=== PATIENT | female | born 1950 | race Caucasian/White ===

== ENCOUNTER → 2019-07-20 11:04 | Outpatient (BNVA) | payer MEDICARE, SELFPAY | PROVIDERS: Visit Provider Family Medicine | DX: Z01.419 Encounter for gynecological examination (general) (routine) without abnormal findings (principal); Z13.6 Encounter for screening for cardiovascular disorders; D12.6 Benign neoplasm of colon, unspecified; E55.9 Vitamin D deficiency, unspecified; H93.12 Tinnitus, left ear; D12.3 Benign neoplasm of transverse colon; R03.0 Elevated blood-pressure reading, without diagnosis of hypertension | CPT/HCPCS: 80053; 80061; 82306; 85025; 88175 ==

== ENCOUNTER 2020-02-06 11:30 | Outpatient (CLI) | payer MEDICARE, SELFPAY ==
--- NOTE | 2020-02-06 11:30 | MM_ITS ---
WS: [id number] BILATERAL SCREENING DIGITAL MAMMOGRAM WITH CAD HISTORY: history of breast cancer COMPARISON: None available. Bilateral CC and MLO views submitted. Computer aided detection analyzed. Breast composition: There are scattered areas of fibroglandular density. No suspicious masses, microc alcifications or architectural distortion. Dystrophic large calcifications in the anterior lateral RI GHT breast. There are several surgical sutures noted in the RIGHT axilla. MM/[place] [id number] IMPRESSION: BI-RADS: 2-Benign FOLLOW UP: 1 Year Follow-up Patient does have a history of breast cancer. No prior studies are available fo r comparison.
== END 2020-02-06 11:31 | disposition home or self-care (01) ==
LOC: RADSHAW 11:32
PROVIDERS: PCP Family Medicine; Visit Provider Family Medicine
DX: Z85.3 Personal history of malignant neoplasm of breast (principal)
CPT/HCPCS: 77066

== ENCOUNTER → 2020-03-04 16:20 | Outpatient (BNVA) | payer MEDICARE, SELFPAY | PROVIDERS: PCP Family Medicine; Visit Provider Family Medicine | DX: R10.9 Unspecified abdominal pain (principal) | CPT/HCPCS: 81000; 87077; 87086; 87184 ==

== ENCOUNTER 2020-03-14 12:16 | Outpatient (CLI) | payer MEDICARE, SELFPAY ==
[2020-03-14 13:07] LABS: Basophils # 0.1 10^3/uL (0.0-0.1); Basophils % 1.1 %; Eosinophils # 0.1 10^3/uL (0.0-0.8); Eosinophils % 1.9 %; Hematocrit 41.2 % (37.0-47.0); Hemoglobin 13.6 g/dL (11.5-15.3); Lymphocytes # 1.1 10^3/uL (0.8-4.8); Lymphocytes % 23.6 %; Mean Corpuscular Hemoglobin 30.8 pg (28.0-34.0); Mean Corpuscular Volume 93.2 fL (81-99); Mean Platelet Volume 10.4 fL (7.4-10.4); Monocytes # 0.3 10^3/uL (0.2-0.9); Monocytes % 7.4 %; Neutrophils # 3.04 10^3/uL (1.8-7.7); Neutrophils % 65.8 %; Nucleated Red Blood Cells % 0 %; Platelet Count 170 10^3/cmm (130-400); Red Blood Count 4.42 10^6/uL (4.1-5.3); Red Cell Distribution Width 11.9 % (12.1-15.1); White Blood Count 4.6 10^3/uL (4.0-10.0)
[2020-03-14 13:33] LABS: Alanine Aminotransferase 34 U/L (0-33); Albumin Level 4.3 g/dL (3.5-5.2); Alkaline Phosphatase 89 IU/L (35-105); Amylase 44 U/L (28-100); Anion Gap 11.2 (5-19); Aspartate Amino Transferase 26 U/L (0-32); Blood Urea Nitrogen 13 mg/dL (8-23); Calcium 9.2 mg/dL (8.5-10.5); Carbon Dioxide 29 mmol/L (22-29); Chloride 104 mmol/L (98-107); Globulin 2.4 g/dL (1.3-4.6); Glomerular Filtration Rate 122.7 mL/min (90-130); Glucose 106 mg/dL (65-115); Osmolality Calculated 291 mOsm/kg (285-295); Potassium 4.2 mmol/L (3.5-5.1); Sodium 140 mmol/L (136-145); Thyroid Stimulating Hormone 0.85 uIU/mL (0.27-4.20); Total Bilirubin 0.4 mg/dL (0.15-1.2); Total Protein 6.7 g/dL (6.6-8.7)
--- NOTE | 2020-03-14 14:00 | CT_ITS ---
WS: [id number] CT ABDOMEN PELVIS TECHNIQUE: Noncontrast CT of the abdomen and contrast-enhanced CT of the abdomen and pelvis with jin nal and sagittal reformatted images. CLINICAL INFORMATION: see dx COMPARISON: None. DLP: 2099.[address] scans at [facility] use at least one of these dose optimization techniques: automat ed exposure control; mA and/or kV adjustment per patient size (includes targeted exams where dose is matched to clinical indication); or iterative reconstruction. FINDINGS: Mild diffuse fatty infiltration of the liver. 2 or 3 Small low-attenuation lesions in the liver too s mall to characterize but most likely represent hepatic cysts. Low-attenuation lesions in the spleen m ost likely represent hepatic cysts or hemangiomas. Normal GE junction. Normal portal vein and splenic vein. Normal gallbladder. Lung bases are well aerated. Adrenal glands are normal. Moderate left pelvocaliectasis with suspected left UPJ stricture.Left ureter is decompressed. Left pe ripelvic renal cysts. No hydronephrosis in right kidney. Right ureter is decompressed. Bilateral uma l cysts. Normal caliber abdominal aorta. Aortic calcification. Sigmoid diverticulosis. No evidence of acute di verticulitis. Appendix appears normal. Small amount of free fluid in the cul-de-sac. Tiny fat-contain ing umbilical hernia. No periaortic or pelvic lymphadenopathy. No inguinal lymphadenopathy. Moderate to advanced degenerative changes lumbar spine with multilevel disc space narrowing throughout the lum bar spine. CT/CT abdomen pelvis wo/w [id number] IMPRESSION: 1. No abdominal or pelvic lymphadenopathy. 2. Moderate left pelvocaliectasis with suspected stricture at the left UPJ. Le ft ureter is decompressed. 3. Incidental bilateral renal cysts. 4. Low-attenuation lesions in the spleen most likely represent splenic cysts o r hemangiomas. 5. Diffuse fatty infiltration the liver with a few tiny low-attenuation lesion s too small characterize likely hepatic cysts. 6. Small amount of free fluid in the cul-de-sac. 7. Sigmoid diverticulosis. No evidence of acute diverticulitis.
== END 2020-03-14 12:17 | disposition home or self-care (01) ==
LOC: CT 12:17
PROVIDERS: PCP Family Medicine; Visit Provider Specialist
DX: R10.9 Unspecified abdominal pain (principal); R63.4 Abnormal weight loss; N28.89 Other specified disorders of kidney and ureter; Q61.02 Congenital multiple renal cysts; K76.0 Fatty (change of) liver, not elsewhere classified; K57.30 Diverticulosis of large intestine without perforation or abscess without bleeding; D12.3 Benign neoplasm of transverse colon; R29.90 Unspecified symptoms and signs involving the nervous system
CPT/HCPCS: 36415; 74178; 80053; 81003; 82150; 84443; 85025; G0463; Q9967

== ENCOUNTER 2020-03-14 16:04 | Outpatient (CLI) | payer MEDICARE, SELFPAY ==
[2020-03-14 16:47] LABS: Add Urine Microscopic? NO; Bilirubin Urine Neg (Negative); Blood Urine Neg (Negative); Glucose Urine UA Norm (Normal); Ketones Urine Negative (Negative); Leukocyte Esterase Urine Negative (Negative); Nitrate Urine Negative (Negative); Protein Urine Neg (Negative); Specific Gravity, Urine 1.005 (1.005-1.030); Urine Appearance Clear (CLEAR); Urine Color Yellow (Yellow); Urobilinogen Urine Norm (Negative); pH Urine 5 (5-7)
== END 2020-03-14 16:05 | disposition home or self-care (01) ==
LOC: LAB 16:08
PROVIDERS: PCP Family Medicine; Visit Provider Specialist
DX: R10.9 Unspecified abdominal pain (principal)
CPT/HCPCS: 81003

== ENCOUNTER → 2020-03-19 10:29 | Outpatient (BNVA) | payer MEDICARE, SELFPAY | PROVIDERS: PCP Family Medicine; Referring Provider Specialist; Visit Provider Urology | DX: R10.11 Right upper quadrant pain (principal) | CPT/HCPCS: 81003 ==

== ENCOUNTER 2020-04-08 09:30 | Outpatient (CLI) | payer MEDICARE, SELFPAY ==
--- NOTE | 2020-04-08 09:46 | NM_ITS ---
WS: [id number] INDICATION: Hydronephrosis TECHNIQUE: Nuclear medicine renal flow study. 12.5 mCi technetium DTPA administered. FINDINGS: CT abdomen pelvis March 14, 2020 reviewed. Normal symmetric renal perfusion bilaterally. Renal cortical echo be bilaterally symmetric and normal in appearance. Normal time to peak. Normal emptying post diuretic administration within normal filli ng of the bladder. No delayed excretion on delayed nephrogram. NM/NM renal flow w pharm [id number] IMPRESSION: Normal renal flow study with normal renal and ureteral excretion bi laterally
== END 2020-04-08 09:31 | disposition home or self-care (01) ==
LOC: RAD 09:37
PROVIDERS: PCP Family Medicine; Visit Provider Urology
DX: N13.30 Unspecified hydronephrosis (principal)
CPT/HCPCS: 78708; A9539

== ENCOUNTER → 2020-04-12 10:25 | Outpatient (BNVA) | payer MEDICARE, SELFPAY | PROVIDERS: PCP Family Medicine; Visit Provider Urology | DX: N13.30 Unspecified hydronephrosis (principal) | CPT/HCPCS: 81003 ==

== ENCOUNTER 2020-05-15 09:51 | Outpatient (CLI) | payer MEDICARE, SELFPAY ==
--- NOTE | 2020-05-15 10:15 | US_ITS ---
WS: [id number] RIGHT UPPER QUADRANT ULTRASOUND HISTORY: R10.11 - Right upper quadrant pain COMPARISON: None available. Liver: 18.3 cm in length. Normal size liver. No bile duct dilatation or mass. Gallbladder: Normally distended gallbladder with no stones or wall thickening. CBD: 0.4 cm Pancreas: Normal size and echogenicity. Right kidney: 11.3 cm in length. Normal size and echogenicity. No hydronephrosis or mass. Aorta and IVC: Unremarkable abdominal aorta and IVC. No ascites. US/US gall bladder [id number] IMPRESSION: Normal RIGHT upper quadrant ultrasound.
== END 2020-05-15 09:52 | disposition home or self-care (01) ==
LOC: RAD 09:53
PROVIDERS: PCP Family Medicine; Visit Provider Internal Medicine
DX: R10.11 Right upper quadrant pain (principal)
CPT/HCPCS: 76705

== ENCOUNTER → 2021-10-16 09:22 | Outpatient (BNVA) | payer MEDICARE, SELFPAY | PROVIDERS: PCP Family Medicine; Visit Provider Specialist | DX: M79.7 Fibromyalgia (principal); Z71.89 Other specified counseling | CPT/HCPCS: 20550; 20552; 99212; J1030; J3490 ==

== ENCOUNTER → 2021-11-28 12:00 | Outpatient (BNVA) | payer MEDICARE, SELFPAY | PROVIDERS: PCP Family Medicine; Visit Provider Family Medicine | DX: Z13.6 Encounter for screening for cardiovascular disorders (principal); E55.9 Vitamin D deficiency, unspecified; M25.552 Pain in left hip; G89.29 Other chronic pain | CPT/HCPCS: 80053; 80061; 82306; 85025 ==

== ENCOUNTER 2021-12-09 06:00 | Outpatient (RCR) | payer MEDICARE, SELFPAY | END 2022-01-07 23:59 | disposition home or self-care (01) | LOC: SPT 06:00 | PROVIDERS: PCP Family Medicine; Visit Provider Family Medicine | DX: M25.552 Pain in left hip (principal); G89.29 Other chronic pain | CPT/HCPCS: 97110; 97113; 97161 ==

== ENCOUNTER 2021-12-17 13:45 | Outpatient (CLI) | payer MEDICARE, SELFPAY ==
--- NOTE | 2021-12-17 14:01 | MM_ITS ---
WS: [id number] BILATERAL 3D TOMOSYNTHESIS DIGITAL DIAGNOSTIC MAMMOGRAPHY WITH CAD CLINICAL INFORMATION: history of breast cancer HISTORY: COMPARISON: February 06, 2020 TECHNIQUE: Bilateral CC, MLO, and ML views. FINDINGS: Scattered fibroglandular densities bilaterally. Stable dystrophic calcifications upper outer RIGHT br east. A few punctate and lucent centered calcifications. Slightly spiculated using asymmetric density upper outer LEFT breast. Recommend further evaluation with spot compression diagnostic mammography a nd ultrasound. Asymmetric density measures approximately 6 mm. Stable surgical clips RIGHT axilla. RIGHT breast is unremarkable and unchanged. MM/[place] [id number] IMPRESSION: BI-RADS: 0-Incomplete: Need additional imaging evaluation FOLLOW UP: Need Additional Imaging Recommend LEFT breast diagnostic mammography with spot compression views and ul trasound for further evaluation.
== END 2021-12-17 13:46 | disposition home or self-care (01) ==
LOC: RAD 13:48
PROVIDERS: PCP Family Medicine; Visit Provider Family Medicine
DX: Z85.3 Personal history of malignant neoplasm of breast (principal); R92.1 Mammographic calcification found on diagnostic imaging of breast
CPT/HCPCS: 77062

== ENCOUNTER 2022-01-08 06:00 | Outpatient (RCR) | payer MEDICARE, SELFPAY | END 2022-01-30 23:59 | disposition home or self-care (01) | LOC: SPT 06:00 | PROVIDERS: PCP Family Medicine; Visit Provider Family Medicine | DX: M25.552 Pain in left hip (principal); G89.29 Other chronic pain | CPT/HCPCS: 97110; 97113 ==

== ENCOUNTER 2022-01-08 13:36 | Outpatient (CLI) | payer MEDICARE, SELFPAY ==
--- NOTE | 2022-01-08 13:44 | MM_ITS ---
WS: [id number] LEFT 3D TOMOSYNTHESIS DIGITAL MAMMOGRAPHY WITH CAD CLINICAL INFORMATION: left breast mass COMPARISON: December 17, 2021 TECHNIQUE: 1 views of the left breast was obtained. FINDINGS: Scattered fibroglandular densities of the left breast. Again seen is the slightly spiculated 5 mm asy mmetric density upper outer LEFT breast. This partially compresses out on the spot compression views. Ultrasound is described below. ULTRASOUND BREAST LEFT TECHNIQUE: Ultrasound left breast focused area of concern. CLINICAL INFORMATION: left breast mass FINDINGS: Ultrasound LEFT breast upper-outer quadrant. At the 2:00 position 5 cm from the nipple there is a 4 x 5 x 2 mm incidental lymph node. No suspicious lesions to target for biopsy. No suspicious findings. Recommend return to annual screening mammography. MM/[place] [id number] IMPRESSION: BI-RADS: 2-Benign FOLLOW UP: 1 Year Follow-up Recommend return to annual diagnostic mammography.
== END 2022-01-08 13:37 | disposition home or self-care (01) ==
LOC: RAD 13:38
PROVIDERS: PCP Family Medicine; Visit Provider Family Medicine
DX: N63.21 Unspecified lump in the left breast, upper outer quadrant (principal); N64.89 Other specified disorders of breast
CPT/HCPCS: 76642; 77061

== ENCOUNTER 2022-02-10 14:56 | Outpatient (CLI) | payer MEDICARE, SELFPAY ==
--- NOTE | 2022-02-10 15:21 | XR_ITS ---
WS: [id number] XR hip LT 2-3V wo/w pel* [id number] REASON FOR EXAM: chronic left hip pain FINDINGS: No fracture or focal bone lesion. There is moderate narrowing of the joint space with moderate subchondral sclerosis and cystic change in the acetabulum with moderate marginal osteophytosis. There is moderate osteophytosis of the femora l head. No soft tissue abnormality. XR/XR hip LT 2-3V wo/w pel* [id number] IMPRESSION: Moderate osteoarthritis of the left hip.
== END 2022-02-10 14:57 | disposition home or self-care (01) ==
LOC: RAD 15:02
PROVIDERS: PCP Family Medicine; Visit Provider Family Medicine
DX: M16.12 Unilateral primary osteoarthritis, left hip (principal); M25.552 Pain in left hip; G89.29 Other chronic pain
CPT/HCPCS: 73502

== ENCOUNTER → 2022-02-24 13:08 | Outpatient (BNVA) | payer MEDICARE, SELFPAY | PROVIDERS: PCP Family Medicine; Referring Provider Family Medicine; Visit Provider Physician Assistant | DX: M51.37 Other intervertebral disc degeneration, lumbosacral region (principal); M47.816 Spondylosis without myelopathy or radiculopathy, lumbar region; M47.818 Spondylosis without myelopathy or radiculopathy, sacral and sacrococcygeal region | CPT/HCPCS: 72110; 99203 ==

== ENCOUNTER 2022-05-19 13:25 | Outpatient (CLI) | payer MEDICARE, SELFPAY ==
--- NOTE | 2022-05-19 13:45 | MR_ITS ---
WS: [id number] MRI LUMBAR SPINE NONCONTRAST HISTORY: lower back pain COMPARISON: None available. TECHNIQUE: Sagittal and axial multisequence imaging is submitted. Straightening of normal cervical lordosis. Reverse S-shaped curvature lumbar spine. Disc spaces are desiccated narrowing throughout the lumbar spine. Severe disc space narrowing at L5-S 1. Conus terminates normally at L1-2 disc level. L1-L2: Diffuse annular disc bulging. Bilateral facet joint arthritis and ligamentum flavum hypertroph y encroaching into the thecal sac. LEFT foraminal nerve root sleeve diverticulum. Mild bilateral fora artemio stenosis and RIGHT subarticular recess encroachment. L2-L3: Annular disc bulging with osteophytic ridging and facet arthritis. Facet joint arthritis encro aching upon the thecal sac. Mild bilateral subarticular recess stenosis, LEFT greater than RIGHT. L3-L4: Annular disc bulging with marked ligamentum flavum and facet arthritis. Mild central and RIGHT foraminal stenosis. Moderate LEFT foraminal stenosis and bilateral subarticular recess encroachment. L4-L5: Diffuse annular disc bulging with LEFT foraminal disc protrusion and annular fissure. Marked l igamentum flavum and facet joint arthritis. Moderate central stenosis with mild foraminal and subarti cular recess encroachment. L5-S1: Diffuse disc bulging. Mild clumping of the nerve roots in the thecal sac. Marked facet arthrit is. Ligamentum flavum hypertrophy. Mild bilateral subarticular recess and foraminal stenosis. LEFT renal parapelvic cysts or hydronephrosis. Normal renal flow study on 04/08/2020. MR/MR lumbar spine wo con* [id number] IMPRESSION: 1. Facet joint arthritis and degenerative scoliosis and disc disease throughou t the lumbar spine. 2. Mild bilateral foraminal and RIGHT subarticular recess stenosis at L1-2. 3. Mild bilateral subarticular recess stenosis at L2-3. 4. Moderate LEFT foraminal stenosis and bilateral subarticular recess encroach ment at L2-3. 5. Moderate central stenosis with mild foraminal subarticular recess stenosis at L4-5. 6. Mild bilateral subarticular recess stenosis and foraminal stenosis at L5-S1 .
== END 2022-05-19 13:26 | disposition home or self-care (01) ==
LOC: RAD 13:29
PROVIDERS: PCP Family Medicine; Visit Provider Physician Assistant
DX: M41.86 Other forms of scoliosis, lumbar region (principal); M48.061 Spinal stenosis, lumbar region without neurogenic claudication; M48.07 Spinal stenosis, lumbosacral region
CPT/HCPCS: 72148

== ENCOUNTER → 2022-06-18 13:17 | Outpatient (BNVA) | payer MEDICARE, SELFPAY | PROVIDERS: PCP Family Medicine; Visit Provider Physician Assistant | DX: M47.816 Spondylosis without myelopathy or radiculopathy, lumbar region (principal); M46.1 Sacroiliitis, not elsewhere classified; M51.37 Other intervertebral disc degeneration, lumbosacral region | CPT/HCPCS: 99213 ==

== ENCOUNTER → 2022-10-27 14:01 | Outpatient (BNVA) | payer MEDICARE, SELFPAY | PROVIDERS: PCP Family Medicine; Visit Provider Family Medicine | DX: I10 Essential (primary) hypertension (principal); E55.9 Vitamin D deficiency, unspecified | CPT/HCPCS: 80053; 80061; 82043; 82306; 85025 ==

== ENCOUNTER → 2023-01-14 13:09 | Outpatient (BNVA) | payer MEDICARE, SELFPAY | PROVIDERS: PCP Family Medicine; Visit Provider Dermatology | DX: L30.9 Dermatitis, unspecified (principal); D17.1 Benign lipomatous neoplasm of skin and subcutaneous tissue of trunk; Z85.820 Personal history of malignant melanoma of skin; Z85.828 Personal history of other malignant neoplasm of skin; L82.0 Inflamed seborrheic keratosis; L81.4 Other melanin hyperpigmentation; L57.8 Other skin changes due to chronic exposure to nonionizing radiation; Z79.899 Other long term (current) drug therapy | CPT/HCPCS: 17110; 99214 ==

== ENCOUNTER → 2023-01-26 13:50 | Outpatient (BNVA) | payer MEDICARE, SELFPAY | PROVIDERS: PCP Family Medicine; Visit Provider Family Medicine | DX: E78.5 Hyperlipidemia, unspecified (principal) | CPT/HCPCS: 80061 ==

== ENCOUNTER → 2023-02-03 10:53 | Outpatient (BNVA) | payer MEDICARE, SELFPAY | PROVIDERS: PCP Family Medicine; Visit Provider Dermatology | DX: D48.5 Neoplasm of uncertain behavior of skin (principal); R20.8 Other disturbances of skin sensation; R23.8 Other skin changes; L53.8 Other specified erythematous conditions | CPT/HCPCS: 11402; 12034 ==

== ENCOUNTER 2023-03-01 12:55 | Outpatient (CLI) | payer MEDICARE, SELFPAY ==
--- NOTE | 2023-03-01 13:00 | MM_ITS ---
WS: [id number] BILATERAL 3D TOMOSYNTHESIS DIGITAL DIAGNOSTIC MAMMOGRAPHY WITH CAD CLINICAL INFORMATION: history of breast cancer HISTORY: History of breast cancer COMPARISON: 2021 TECHNIQUE: Bilateral CC, MLO, and ML views. FINDINGS: Scattered fibroglandular densities bilaterally. Surgical clips RIGHT axilla. Stable post lumpectomy c hanges RIGHT breast with parenchymal fibrosis. No suspicious focal mass, asymmetry, calcifications, or architectural distortion. No evidence of calos gnancy. IMPRESSION: MM/[place] [id number] BI-RADS: 2-Benign FOLLOW UP: 1 Year Follow-up Recommend return to annual diagnostic mammography.
== END 2023-03-01 12:56 | disposition home or self-care (01) ==
LOC: RAD 12:56
PROVIDERS: PCP Family Medicine; Visit Provider Family Medicine
DX: Z85.3 Personal history of malignant neoplasm of breast (principal)
CPT/HCPCS: 77062; G0279

== ENCOUNTER → 2023-03-08 09:46 | Outpatient (BNVA) | payer MEDICARE, SELFPAY | PROVIDERS: PCP Family Medicine; Visit Provider Surgery | DX: Z12.11 Encounter for screening for malignant neoplasm of colon (principal); Z12.12 Encounter for screening for malignant neoplasm of rectum | CPT/HCPCS: 99024; 99203 ==

== ENCOUNTER 2023-03-23 08:31 | Day surgery (SDC) | payer MEDICARE, SELFPAY ==
[2023-03-23 08:55] VITALS: BP 158/92; PULSE 67; RESP 18; TEMP 36.4; O2SAT 97; BMI 28.3
--- NOTE | 2023-03-23 09:01 | P.HPUD_ITS ---
Surgery/Procedure H&P Update DATE OF PROCEDURE: March 23, 2023 DATE H&P PERFORMED: 03/08/23 H&P UPDATE INFORMATION: I have reviewed H&P completed within last 30 days, I have examined patient prior to procedure, No changes to prior documentation and H&P is in [facility] [place] on date indicated PLANNED PROCEDURE: Operation Date: 03/23/23 09:20 Proposed Procedures p Colonoscopy g0121,z12.11(Not Applicable) - Neymar Vaz MD
[2023-03-23] MEDS: sodium chloride 0.9% 1,000 ML 30 ML IV (09:02)
--- NOTE | 2023-03-23 09:04 | P.ANESASSM_ITS ---
Pre-Anesthetic Assessment Height/Weight: Height 1.65 m Weight 77.111 kg Temp Pulse Resp BP Pulse Ox O2 Del Method 97.6 F 67 18 158/92 97 Room Air 03/23/23 08:55 03/23/23 08:55 03/23/23 08:55 03/23/23 08:55 03/23/23 08:55 03/23/23 08:55 Preop Diagnosis: screening Operation Date: 03/23/23 09:20 Proposed Procedures p Colonoscopy g0121,z12.11(Not Applicable) - Neymar Vaz MD Was Beta Lexie taken within 24 hours: N/A Was Clonidine taken within 24 hours: N/A Last intake: Intake Last Liquid Date 03/22/23 Last Liquid Time 22:30 Last Solid Date 03/21/23 Last Solid Time 19:00 Social No alcohol and No tobacco Exam alert, oriented x 3, clear to auscultation bilaterally and regular rate & rhythm Airway Submandibular: within normal limits Cervical ROM: within normal limits Mallampati: Class I History/ROS No significant history except as noted and No significant complaints Pulmonary None reported CV/HEM Hypertension None reported Hepatic None reported GI None reported Metabolic None reported Musc/skel None reported Neuropsych None reported Anesthetic Plan ASA status: 2 Anesthesia: Anesthesia Evaluation and MAC Risk of > 500 ml blood loss (7ml/kg in children): Yes, adequate IV access and fluids planned Medications/Allergies Home Medications Medication Instructions Recorded Confirmed Last Taken Type ascorbic acid (vitamin C) 1,000 mg 1 g PO DAILY 03/19/20 03/19/23 03/22/23 History tablet omega-3 fatty acids 1,000 mg 1,000 mg PO DAILY 03/19/20 03/19/23 03/18/23 History capsule (Fish Oil Concentrate) gabapentin 300 mg capsule 300 mg PO .[facility] #270 caps 02/26/22 03/19/23 03/22/23 Rx (Neurontin) amlodipine 5 mg tablet 5 mg PO BEDTIME 03/19/23 03/19/23 03/22/23 History meloxicam 15 mg tablet 15 mg PO DAILY PRN Pain 03/19/23 03/23/23 03/18/23 History aspirin 81 mg tablet 81 mg PO DAILY 03/23/23 03/23/23 03/19/23 History Allergies Allergy/AdvReac Type Severity Reaction Status Date / Time Sulfa (Sulfonamide AdvReac Mild ALGY-Hives Verified 03/19/23 12:51 Antibiotics) Current Medications Generic Name Dose Route Start Last Admin Trade Name Nima PRN Reason Stop Dose Admin Sodium Chloride 1,000 mls @ 30 mls/hr 03/23/23 08:45 03/23/23 09:02 Sodium Chloride 0.9% IV 03/24/23 08:44 30 mls/hr .Q24H ONEYDA Administration PFSH Anesthesia Medical History Abdominal pain Breast cancer History of malignant melanoma History of nonmelanoma skin cancer History of skin cancer She has had melanoma on her head and her shoulder. She goes to [facility] Post-menopausal Surgical History H/O lumpectomy Family History Father , at age 85 CAD (coronary artery disease) Mother No problems noted. Social History Smoking and tobacco/nicotine status: never used tobacco/nicotine Alcohol intake: current Alcohol intake frequency: few times a month Alcohol type: wine Substance/Drug Use: never Marital status: Current occupational status: retired Data Anesthesia Cardiac Studies: No Data to Display
--- NOTE | 2023-03-23 09:45 | XR_ITS ---
WS: [id number] Exam: XR abdomen 1V* [id number] Date/Time of Exam: 03/23/2023 9:52 AM Reason For Exam: possible perf No bowel obstruction or pneumoperitoneum. Moderate amount of gas in the large bowel. No sign of organ enlargement. Signs of prior cholecystectomy. Moderately advanced degenerative change of the lumbar s pine and dextroscoliosis. IMPRESSION: 1. No sign of acute bowel obstruction or pneumoperitoneum. 2. Moderate amount of gas in the colon.
[2023-03-23 09:50] VITALS: BP 105/63; PULSE 63; RESP 14; TEMP 36.1; O2SAT 96
[2023-03-23 10:05] VITALS: BP 146/74; PULSE 50; RESP 16; O2SAT 98
--- NOTE | 2023-03-23 10:25 | ANE.PACU2 ---
Inpatient post-anesthesia follow up: Airway intact: Yes Vital signs: Temperature 97.0 F Pulse Rate 50 Respiratory Rate 16 Blood Pressure 146/74 Pulse Oximetry 98 Oxygen Delivery Me thod Room Air Oxygen Flow Rate Fraction of Inspir ed Oxygen Hydration adequate: Yes Nausea and vomiting: No Pain level: 1 Mental status: Baseline
== END 2023-03-23 10:26 | disposition home or self-care (01) ==
PROVIDERS: PCP Family Medicine; Visit Provider Surgery
PROC: 0DJD8ZZ Inspection of Lower Intestinal Tract, Via Natural or Artificial Opening Endoscopic (ICD-10-PCS; CPT 45330; 2023-03-23 09:20)
DX: Z12.11 Encounter for screening for malignant neoplasm of colon (principal); K57.30 Diverticulosis of large intestine without perforation or abscess without bleeding; Z86.010 Personal history of colon polyps; I10 Essential (primary) hypertension; Z79.82 Long term (current) use of aspirin; Z85.3 Personal history of malignant neoplasm of breast
CPT/HCPCS: 45330; 74018; J2001; J2704; J3010; J7030

== ENCOUNTER → 2023-06-28 10:38 | Outpatient (BNVA) | payer MEDICARE, SELFPAY | PROVIDERS: PCP Family Medicine; Visit Provider Nurse Practitioner Family | DX: S30.861A Insect bite (nonvenomous) of abdominal wall, initial encounter (principal); S80.861A Insect bite (nonvenomous), right lower leg, initial encounter; S80.862A Insect bite (nonvenomous), left lower leg, initial encounter; X58.XXXA Exposure to other specified factors, initial encounter; Z85.820 Personal history of malignant melanoma of skin; Z85.828 Personal history of other malignant neoplasm of skin; L82.0 Inflamed seborrheic keratosis; L57.0 Actinic keratosis | CPT/HCPCS: 17000; 17110; 99214 ==

== ENCOUNTER → 2024-01-31 10:45 | Outpatient (BNVA) | payer MEDICARE, SELFPAY | PROVIDERS: PCP Family Medicine; Visit Provider Family Medicine | DX: Z13.6 Encounter for screening for cardiovascular disorders (principal); I10 Essential (primary) hypertension; E78.5 Hyperlipidemia, unspecified; E55.9 Vitamin D deficiency, unspecified; D12.3 Benign neoplasm of transverse colon; Z85.3 Personal history of malignant neoplasm of breast; M51.37 Other intervertebral disc degeneration, lumbosacral region | CPT/HCPCS: 80053; 80061; 82652; 85025 ==

== ENCOUNTER → 2024-02-16 13:24 | Outpatient (BNVA) | payer MEDICARE, SELFPAY | PROVIDERS: PCP Family Medicine; Visit Provider Surgery | DX: Z12.11 Encounter for screening for malignant neoplasm of colon (principal) | CPT/HCPCS: 99024; 99214 ==

== ENCOUNTER → 2024-02-24 13:35 | Outpatient (BNVA) | payer MEDICARE, SELFPAY | PROVIDERS: PCP Family Medicine; Visit Provider Family Medicine | DX: I49.9 Cardiac arrhythmia, unspecified (principal) | CPT/HCPCS: 93005 ==

== ENCOUNTER 2024-03-01 14:45 | Outpatient (CLI) | payer MEDICARE, SELFPAY ==
--- NOTE | 2024-03-01 15:00 | USCV_ITS ---
Viktoriya De La Fuente Age: 73 Gender: F : 1950 Exam Date: 03/01/2024 15:20 Ordering Phys: Trinity Knight MD Technologist: CT [place] [facility] [place]ication: BP: 120 / 77 HR: 52 Rhythm: Sinus Technical Quality: Adequate MEASUREMENTS (Male / Female) Normal Values 2D ECHO LVOT Diameter 2.0 cm LV Ejection Fraction MOD 4C 64.0 % LV Ejection Fraction MOD 2C 58.7 % LV Ejection Fraction 2C AL 63.0 % LA Diameter 4.1 cm RA Systolic Volume 4C AL 48.8 ml RA Systolic Volume 4C MOD 48.1 ml LA Sys Volume AL 52.9 cm cubed LA Sys Volume Index AL 27.8 cm cubed/m squared Aorta at Sinotubular Diameter 2.7 cm M-MODE LA Ao Ratio MM 1.8 AV Cusp Separation MM 1.4 cm DOPPLER AV Peak Velocity 286.0 cm/s LVOT Peak Velocity 123.0 cm/s AV Area Cont Eq vti 2.3 cm squared AV Area Cont Eq pk 1.4 cm squared MV Peak Velocity 110.0 cm/s MV Area PHT 2.3 cm squared Mitral E to A Ratio 0.8 TV Peak Velocity 199.0 cm/s TR Peak Velocity 207.0 cm/s TR Peak Gradient 17.1 mmHg TV Peak E Velocity 68.0 cm/s Right Atrial Pressure 3.0 mmHg Pulmonary Artery Systolic Pressu 20.1 mmHg PV Peak Velocity 64.0 cm/s FINDINGS Left Ventricle Normal left ventricular size and systolic function, EF 63%.no regional wall motion abnormalities. Mild left ventricular hypertrophy. Grade I/IV diastolic dysfunction (abnormal relaxation filling pattern), normal to mildly elevated filling pressures. Right Ventricle The right ventricle is normal in size and function. Right Atrium The right atrium is normal in size. Left Atrium The left atrium is normal in size. Mitral Valve Mild mitral annular calcification. Aortic Valve Thickened aortic valve. Mild aortic valve regurgitation. Tricuspid Valve Trace tricuspid valve regurgitation. Pulmonic Valve No gross abnormalities noted Pericardium Normal pericardium without effusion. Aorta Normal ascending aorta dimension. IVC Inferior vena cava not visualized. CONCLUSIONS Normal left ventricular size and systolic function, EF 63%.no regional wall motion abnormalities. Mild left ventricular hypertrophy. Grade I/IV diastolic dysfunction (abnormal relaxation filling pattern), normal to mildly elevated filling pressures. Mild mitral annular calcification. Thickened aortic valve. Mild aortic valve regurgitation. Trace tricuspid valve regurgitation. There is no pericardial effusion. There are no intracardiac masses. No similar previous studies are available for comparison Dr Betty Marcial MD [facility] (Electronically Signed) Final Date: 04 March 2024 15:49 S
== END 2024-03-01 14:46 | disposition home or self-care (01) ==
LOC: RAD 14:46
PROVIDERS: PCP Family Medicine; Visit Provider Family Medicine
DX: I50.30 Unspecified diastolic (congestive) heart failure (principal); I35.2 Nonrheumatic aortic (valve) stenosis with insufficiency
CPT/HCPCS: 93306

== ENCOUNTER 2024-03-09 11:29 | Outpatient (CLI) | payer MEDICARE, SELFPAY ==
--- NOTE | 2024-03-09 11:30 | MM_ITS ---
WS: [id number] DIAGNOSTIC BILATERAL DIGITAL BREAST TOMOSYNTHESIS MAMMOGRAPHY WITH CAD HISTORY: hx of breast cancer; had lumpectomy right and radiation 2005 COMPARISON: 03/01/2023, 01/08/2022 TECHNIQUE: Bilateral craniocaudad, mediolateral oblique, and mediolateral views are submitted with to mosynthesis and SM. Computer aided detection utilized. Breast composition: There are scattered areas of fibroglandular density. Dystrophic calcifications upper outer quadrant RIGHT breast with postsurgical lumpectomy scar. No rec urrent mass. Surgical clips from a prior RIGHT axillary vonnie dissection. MM/MM diag BI tomosynthesis [id number] IMPRESSION: BI-RADS: 2 - Benign. FOLLOW UP: 1 Year Follow-up
== END 2024-03-09 11:30 | disposition home or self-care (01) ==
PROVIDERS: PCP Family Medicine; Visit Provider Family Medicine
DX: Z85.3 Personal history of malignant neoplasm of breast (principal); R92.323 Mammographic fibroglandular density, bilateral breasts; R92.1 Mammographic calcification found on diagnostic imaging of breast; Z98.890 Other specified postprocedural states
CPT/HCPCS: 77062; G0279

== ENCOUNTER 2024-03-16 10:21 | Day surgery (SDC) | payer MEDICARE, SELFPAY ==
[2024-03-16 10:33] VITALS: BP 129/77; PULSE 93; RESP 16; TEMP 36.5; O2SAT 97
[2024-03-16 10:35] VITALS: BMI 28.3
--- NOTE | 2024-03-16 10:38 | P.HPUD_ITS ---
Surgery/Procedure H&P Update DATE OF PROCEDURE: March 16, 2024 DATE H&P PERFORMED: 02/16/24 H&P UPDATE INFORMATION: I have reviewed H&P completed within last 30 days, I have examined patient prior to procedure, No changes to prior documentation and H&P is in [facility] [place] EMR on date indicated PLANNED PROCEDURE: Operation Date: 03/16/24 11:40 Proposed Procedures p Colonoscopy 40217, G0105, Z12.11(Not Applicable) - Neymar Vaz MD
[2024-03-16] MEDS: sodium chloride 0.9% 1,000 ML 30 ML IV (10:42)
--- NOTE | 2024-03-16 10:44 | ANES.PREANE2 ---
Pre-Anesthetic Assessment Height/Weight: Height 1.65 m Weight 77.111 kg Temp Pulse Resp BP Pulse Ox O2 Del Method 97.7 F 93 16 129/77 97 Room Air 03/16/24 10:33 03/16/24 10:33 03/16/24 10:33 03/16/24 10:33 03/16/24 10:33 03/16/24 10:33 Operation Date: 03/16/24 11:40 Proposed Procedures p Colonoscopy 92438, G0105, Z12.11(Not Applicable) - Neymar Vaz MD Familial anesthetic complications: None Was Beta Lexie taken within 24 hours: N/A Was Clonidine taken within 24 hours: N/A Last intake: Intake Last Liquid Date 03/15/24 Last Liquid Time 20:00 Last Solid Date 03/14/24 Last Solid Time 18:00 Social No alcohol and No tobacco Exam alert, oriented x 3, clear to auscultation bilaterally and regular rate & rhythm Airway Mallampati: Class II Dentition: full CV/HEM Hypertension aortic regurge Metabolic Hyperlipidemia Anesthetic Plan ASA status: 2 Anesthesia: MAC Risk of > 500 ml blood loss (7ml/kg in children): No Medications/Allergies Home Medications Medication Instructions Recorded Confirmed Last Taken Type ascorbic acid (vitamin C) 1,000 mg 1 g PO DAILY 03/19/20 03/16/24 03/14/24 History tablet ezetimibe 10 mg tablet (Zetia) 10 mg PO DAILY #90 tabs 02/01/24 03/16/24 03/15/24 Rx meloxicam 15 mg tablet 15 mg PO DAILY PRN Pain #30 tabs 02/16/24 03/16/24 Unknown Rx ondansetron 8 mg disintegrating 8 mg PO Q8H PRN nausea and 02/16/24 03/16/24 Unknown Rx tablet vomiting #10 tabs losartan 100 mg tablet 100 mg PO DAILY #90 tabs 02/24/24 03/16/24 03/15/24 Rx hydrochlorothiazide 25 mg tablet 25 mg PO DAILY #90 tabs 03/10/24 03/16/24 03/15/24 Rx clindamycin phosphate 1 % topical 1 applic topical DAILY PRN Outbreak 03/14/24 03/16/24 03/15/24 History gel gabapentin 300 mg capsule 300 mg PO DAILY 03/14/24 03/16/24 03/15/24 History (Neurontin) triamcinolone acetonide 0.1 % 1 applic topical DAILY PRN Outbreak 03/14/24 03/16/24 Unknown History topical cream Allergies Allergy/AdvReac Type Severity Reaction Status Date / Time Sulfa (Sulfonamide AdvReac Mild ALGY-Hives Verified 02/24/24 13:36 Antibiotics) Current Medications Generic Name Dose Route Start Last Admin Trade Name Freq PRN Reason Stop Dose Admin Sodium Chloride 1,000 mls @ 30 mls/hr 03/16/24 10:45 03/16/24 10:42 Sodium Chloride 0.9% IV 03/17/24 10:44 30 mls/hr .Q24H ONEYDA Administration PFSH Anesthesia Medical History (Updated 03/04/24 @ 18:36 by Trinity Knight MD) Aortic regurgitation ECHO 03.01.24 EF normal; mild Heart murmur ECHO scheduled 03.01.24 Hyperlipidemia she declined statin; on zetia Hx of breast cancer lumpectomy and radiation only; 2005 Lumbar spondylosis DDD (degenerative disc disease), lumbosacral Benign essential HTN History of nonmelanoma skin cancer History of malignant melanoma History of skin cancer She has had melanoma on her head and her shoulder. She goes to [facility] Post-menopausal Surgical History (Updated 02/24/24 @ 14:11 by Trinity Knight MD) Hx of melanoma excision H/O lumpectomy Right side; done for breast cancer; had radiation also 2005 Family History Father , at age 85 CAD (coronary artery disease) Mother No problems noted. Brother Colon cancer Social History Smoking and tobacco/nicotine status: never used tobacco/nicotine Alcohol intake: current Alcohol intake frequency: few times a month Alcohol type: wine Substance/Drug Use: never Marital status: Current occupational status: retired Data Anesthesia Cardiac Studies: Echocardiogram 03/01/24
[2024-03-16 12:20] VITALS: BP 103/68; PULSE 63; RESP 16; TEMP 36.1; O2SAT 99
[2024-03-16 12:32] VITALS: BP 123/77; PULSE 64; RESP 17; O2SAT 98
--- NOTE | 2024-03-16 12:45 | ANE.PACU2 ---
Inpatient post-anesthesia follow up: Airway intact: Yes Vital signs: Temperature 97.0 F Pulse Rate 64 Respiratory Rate 17 Blood Pressure 123/77 Pulse Oximetry 98 Oxygen Delivery Me thod Room Air Oxygen Flow Rate Fraction of Inspir ed Oxygen Hydration adequate: Yes Nausea and vomiting: No Pain level: 1 Mental status: Baseline
== END 2024-03-16 12:47 | disposition home or self-care (01) ==
PROVIDERS: PCP Family Medicine; Visit Provider Surgery
PROC: 0DJD8ZZ Inspection of Lower Intestinal Tract, Via Natural or Artificial Opening Endoscopic (ICD-10-PCS; CPT 45378; principal; 2024-03-16 11:40)
DX: Z12.11 Encounter for screening for malignant neoplasm of colon (principal); D12.5 Benign neoplasm of sigmoid colon; K57.31 Diverticulosis of large intestine without perforation or abscess with bleeding; I10 Essential (primary) hypertension; E78.5 Hyperlipidemia, unspecified
CPT/HCPCS: 45385; 88305; J2704; J7030

== ENCOUNTER → 2024-04-19 14:21 | Outpatient (BNVA) | payer MEDICARE, SELFPAY | PROVIDERS: PCP Family Medicine; Visit Provider Nurse Practitioner Family | DX: L82.1 Other seborrheic keratosis (principal); D36.14 Benign neoplasm of peripheral nerves and autonomic nervous system of thorax; I87.2 Venous insufficiency (chronic) (peripheral); Z85.820 Personal history of malignant melanoma of skin; Z08 Encounter for follow-up examination after completed treatment for malignant neoplasm; Z85.828 Personal history of other malignant neoplasm of skin; L82.0 Inflamed seborrheic keratosis; L53.8 Other specified erythematous conditions; Z78.9 Other specified health status; L91.8 Other hypertrophic disorders of the skin; L57.0 Actinic keratosis; R20.8 Other disturbances of skin sensation | CPT/HCPCS: 11200; 17000; 17110; 99213 ==

== ENCOUNTER → 2024-09-25 13:58 | Outpatient (BNVA) | payer MEDICARE, SELFPAY | PROVIDERS: PCP Family Medicine; Visit Provider Family Medicine | DX: I10 Essential (primary) hypertension (principal); R53.83 Other fatigue; R19.7 Diarrhea, unspecified; I35.1 Nonrheumatic aortic (valve) insufficiency; M79.7 Fibromyalgia | CPT/HCPCS: 80053; 80061; 82607; 84443; 85025 ==

== ENCOUNTER 2025-02-16 15:42 | Outpatient (CLI) | payer MEDICARE, SELFPAY | END 2025-02-16 15:43 | disposition home or self-care (01) | LOC: LAB 03-02 09:19 | PROVIDERS: PCP Family Medicine; Visit Provider Family Medicine | DX: Z11.59 Encounter for screening for other viral diseases (principal); I10 Essential (primary) hypertension; E87.6 Hypokalemia | CPT/HCPCS: 80048; 86803 ==

== ENCOUNTER 2025-03-14 13:14 | Outpatient (CLI) | payer MEDICARE, SELFPAY ==
--- NOTE | 2025-03-14 13:20 | MM_ITS ---
WS: [id number] BILATERAL 3D TOMOSYNTHESIS DIGITAL DIAGNOSTIC MAMMOGRAPHY WITH CAD CLINICAL INFORMATION: HX OF BREAST CANCER; due after 03.09.25 HISTORY: RIGHT breast cancer with history of lumpectomy COMPARISON: 2023 TECHNIQUE: Bilateral CC, MLO, and ML views. FINDINGS: Scattered fibroglandular densities bilaterally. Stable postoperative changes upper outer quadrant RIGHT breast with lumpectomy. Associated parenchymal scarring. Surgical clips RIGHT axillary tail. Treatment related changes RIGHT breast. No suspicious focal mass, asymmetry, calcifications, or architectural distortion. No evidence of malignancy. MM/MM diag BI tomosynthesis [id number] IMPRESSION: DENSITY: There are scattered areas of fibroglandular density. BI-RADS: 2 - Benign. FOLLOW UP: 1 Year Follow-up Recommend return to annual diagnostic mammography.
--- NOTE | 2025-03-14 14:00 | XR_ITS ---
WS: [id number] SCREENING DEXA SCAN [facility] CLINICAL INFORMATION: postmenopausal COMPARISON: None. FINDINGS: The L1-L4 bone mineral density measures 1.690 g/cm2. This corresponds to a T score score of 4.2 and Z score of 5.3. Left femoral neck bone mineral density measures 1.184 g/cm2. This corresponds to a T score of 1.4 and Z score of 2.6. Right femoral neck bone mineral density measures 1.181 g/cm2. This corresponds to a T score 1.4of and Z score of 2.6. Mean femoral neck bone mineral density measures 1.182 g/cm2. This corresponds to a T score of 1.4 and Z score of 2.6. XR/XR DEXA axial skeleton* [id number] IMPRESSION: Normal bone mineralization. Patient's FRAX calculated 10 year probability for major osteoporotic fracture i s 7.0% and osteoporotic hip fracture is 0.5%.
== END 2025-03-14 13:15 | disposition home or self-care (01) ==
LOC: RAD 13:15
PROVIDERS: PCP Family Medicine; Visit Provider Family Medicine
DX: Z13.820 Encounter for screening for osteoporosis (principal); Z78.0 Asymptomatic menopausal state; Z90.11 Acquired absence of right breast and nipple; Z85.3 Personal history of malignant neoplasm of breast; Z96.89 Presence of other specified functional implants; R92.323 Mammographic fibroglandular density, bilateral breasts; N64.89 Other specified disorders of breast
CPT/HCPCS: 77062; 77080; G0279

== ENCOUNTER → 2025-04-23 13:54 | Outpatient (BNVA) | payer MEDICARE, SELFPAY | PROVIDERS: PCP Family Medicine; Visit Provider Nurse Practitioner Family | DX: L72.0 Epidermal cyst (principal); L82.1 Other seborrheic keratosis; D36.14 Benign neoplasm of peripheral nerves and autonomic nervous system of thorax; D22.71 Melanocytic nevi of right lower limb, including hip; L82.0 Inflamed seborrheic keratosis; Z78.9 Other specified health status; L53.8 Other specified erythematous conditions; L29.89 Other pruritus; L57.0 Actinic keratosis; L56.5 Disseminated superficial actinic porokeratosis (DSAP) | CPT/HCPCS: 17000; 17110; 99213 ==